=== PATIENT | female | born 1975 | race Caucasian/White ===

== ENCOUNTER 2018-03-21 11:17 | Emergency (ER) | payer BC ==
[~2018-03-21] VITALS: Ht 167.6 cm; Wt 79.4 kg
[2018-03-21] MEDS ORDERED: XANAX 0.5 MG0.5 MG PO (11:27)
[2018-03-21 11:52] LABS: ABSOLUTE EOSINOPHILS 0.1 thou/uL (0.0-0.7); ABSOLUTE LYMPHOCYTES 2.6 thou/uL (0.8-5.3); ABSOLUTE MONOCYTES 0.6 thou/uL (0.0-1.2); ABSOLUTE NEUTROPHILS 6.3 thou/uL (1.6-8.1); BASOPHILS 0.3 %; EOSINOPHILS 1.2 %; HEMATOCRIT 41.2 % (37.0-47.0); HEMOGLOBIN 14.2 gm/dL (12.0-15.0); LYMPHOCYTES 27.2 %; MCH 30.5 pg (26.0-34.0); MCHC 34.6 g/dL (28.0-37.0); MCV 88.2 fL (80.0-100.0); NUCLEATED RBCS 0 /100WBC; PLATELET COUNT* 373 thou/uL (150-400); POLYS 65.3 %; RBC 4.67 mil/uL (4.20-5.00); RDW-CV 13.4 % (10.5-14.5); WBC 9.7 thou/uL (4.0-11.0)
[2018-03-21 12:02] LABS: PROTIME 9.9 Seconds (9.20-11.50)
[2018-03-21 12:03] LABS: ANION GAP 6 mmol/L (7-16); BUN 14 mg/dL (7-18); CALCIUM 8.6 mg/dL (8.5-10.1); CHLORIDE 103 mmol/L (98-107); CO2 31 mmol/L (21-32); CREATININE 0.7 mg/dL (0.6-1.3); GLUCOSE 86 mg/dL (70-99); POTASSIUM 3.6 mmol/L (3.5-5.1); SODIUM 140 mmol/L (136-145)
[2018-03-21 12:14] LABS: ALBUMIN 3.9 g/dL (3.4-5.0); ALKALINE PHOSPHATASE 79 U/L (46-116); LIPASE 231 U/L (73-393); NT-PRO BRAIN NAT PEPTIDE 21 pg/mL (<300); SGOT 21 U/L (15-37); SGPT 29 U/L (30-65); TOTAL BILIRUBIN 0.6 mg/dL (<0.1-1.0); TOTAL PROTEIN 7.6 g/dL (6.4-8.2); TROPONIN-I LEVEL <0.06 ng/mL (<0.06)
[2018-03-21 12:50] VITALS: BP 109/71
--- NOTE | 2018-03-21 16:52 | EKG ---
[place] [address] ELECTROCARDIOGRAM REPORT Name: BILLY SRINIVASAN Room: [facility]#: [id number] Admission: 03/21/18 Attend Phys: Discharge: 03/21/18 Date of : 75 Report #: [id number] THIS REPORT FOR: //name// [facility] ED Test Date: 2018-03-21 Test Time: 11:23:41 Pat Name: BILLY SRINIVASAN Department: Room: Gender: F [employer]: TAVIA : 1975 Requested By: Chucho Birch Order Number: [id number] MD: Bernard Barillas Measurements Intervals [place] Rate: 70 P: 58 WI: 161 QRS: -13 QRSD: 112 T: 19 QT: 436 QTc: 471 Interpretive Statements Sinus rhythm Borderline intraventricular conduction delay Borderline repolarization abnormality No previous ECG available for comparison Electronically Signed On 03-21-2018 16:51:43 SECTION [employer] by Bernard Barillas [email or web address] <ELECTRONICALLY SIGNED> By: Bernard Barillas MD, [facility] 03/21/18 1651 [id number] Bernard Barillas MD, FACC /EPI
== END 2018-03-21 12:52 | disposition home or self-care (01) ==
LOC: M.ERS 11:17
PROVIDERS: Emergency Medicine
DX: R06.00 Dyspnea, unspecified (principal)